=== PATIENT | male | born 1955 | race African-American/Black ===

== ENCOUNTER 2020-07-31 11:15 | Inpatient (IN) | payer OTHER ==
[~2020-07-31] VITALS: Ht 160 cm; Wt 120.0 kg
[2020-07-31 11:15] VITALS: BP 139/59
[~2020-07-31 11:15] MED LIST: METOPROLOL SUCC25 M1 PO; SIMBRINZA 1%-0.28 ML OPHTHALMIC
[2020-07-31 11:43] LABS: ABSOLUTE NEUTROPHILS 6.2 thou/uL (1.4-8.2); BASOPHILS 0.3 % (0.0-2.0); HEMATOCRIT 35.5 % (42.0-52.0); HEMOGLOBIN 11.7 gm/dL (14.0-18.0); MCH 30.1 pg (26.0-34.0); MCHC 33.1 g/dL (28.0-37.0); MONOCYTES 5.8 % (1.0-8.0); PLATELET COUNT 198 thou/uL (150-400); POLYS 85.9 % (36.0-66.0); RDW 14.1 % (10.5-14.5); WBC 7.2 thou/uL (4.0-11.0)
[2020-07-31 11:54] LABS: CALCIUM 10.3 mg/dL (8.5-10.1); CREATININE 2.7 mg/dL (0.7-1.3); POTASSIUM 3.2 mmol/L (3.5-5.1)
[2020-07-31 12:00] LABS: ALBUMIN 3.1 g/dL (3.4-5.0); DIRECT BILIRUBIN 0.2 mg/dL (<0.1-0.2); TOTAL BILIRUBIN 0.6 mg/dL (0.2-1.0); TOTAL PROTEIN 7.2 g/dL (6.4-8.2)
[2020-07-31 12:15] LABS: BE(vivo) 0.6 mmol/L (-2 to +3); HCO3 24.3 mmol/L (22.0-26.0); PCO2 35.7 mmHg (35.0-45.0); pH 7.451 (7.360-7.450); sO2 97.7 % (92.0-98.0)
[2020-07-31 15:01] VITALS: BP 129/52
[2020-07-31 15:10] VITALS: BP 147/54
[2020-07-31 15:46] VITALS: BP 147/70
[2020-07-31 16:10] VITALS: BP 147/70
--- NOTE | 2020-07-31 16:13 | NUR ---
TO UNIT FROM E.D. BY WC. DENIES CP BUT SOA WITH ACTIVITY. ORIENTED TO UNIT, FALL PREVENTION.
[2020-07-31 19:24] VITALS: BP 138/68
[2020-08-01 03:26] VITALS: BP 155/75
--- NOTE | 2020-08-01 05:33 | NUR ---
PT AOX4. PT DENIES PAIN AND SOB WHILE ALTERNATING BETWEEN ROOM AIR AND 12L VIA HIGH FLOW NC WITHOUT DESATURATIONS. PT TOLERATING PO INTAKE OF FLUIDS AND REGULAR DIET WITHOUT ISSUE. PT AMBULATING INDEPENDENTLY IN ROOM AND TO BATHROOM. FREQUENT REPOSITIONING ENCOURAGED, PT NOTED TO SHIFT INDEPENDENTLY WHILE IN BED. PT ENCOUARGED TO NOTIFY STAFF FOR ALL NEEDS, CALL LIGHT WITHIN REACH, BED IN LOWEST POSITION, FREQUENT MONITORING WILL CONTINUE.
[2020-08-01 06:05] LABS: HEMATOCRIT 33.1 % (42.0-52.0); MCH 29.9 pg (26.0-34.0); MCHC 33.2 g/dL (28.0-37.0); MCV 90.1 fL (80.0-100.0); RBC 3.67 mil/uL (4.50-6.00); RDW 14.5 % (10.5-14.5); WBC 6.1 thou/uL (4.0-11.0)
[2020-08-01 06:17] LABS: CALCIUM 9.8 mg/dL (8.5-10.1); CREATININE 2.1 mg/dL (0.7-1.3); POTASSIUM 3.1 mmol/L (3.5-5.1)
[2020-08-01 07:24] VITALS: BP 156/71
[2020-08-01 16:09] VITALS: BP 165/77
--- NOTE | 2020-08-01 18:39 | NUR ---
Assumed pt care at 7am.Pt in and out of bed with sba.Assessment completed.vss but pt has elevated temp. Dr Cherry here,order noted.Later this afternoon,Dr Torres rounded on pt and additional order noted.Pt still on high floow o2.Will continue to monitor.
[2020-08-01 20:19] VITALS: BP 172/76
[2020-08-01] MEDS ORDERED: LISINOPRIL40 MG PO (21:54)
[2020-08-01] MEDS ORDERED: VERAPAMIL HCL120 MG PO (21:54)
[2020-08-01] MEDS ORDERED: TIMOLOL MA0.25 %/52 OPHTHALMIC (21:55)
[2020-08-01] MEDS ORDERED: LATANOPROST 0.2.5 ML OPHTHALMIC (21:58)
[2020-08-02 00:06] VITALS: BP 182/81
[2020-08-02 03:57] VITALS: BP 182/81
--- NOTE | 2020-08-02 05:13 | NUR ---
PT MAKING SLOW PROGRESS TOWARDS GOALS. PT REPORTS HE HAS BEEN REMOVING OXYGEN (15L PER NC) TO GO AND USE THE BATHROOM. FUTHER REPORTED THAT HE DID NOT FEEL SIGNIFICANT OUT OF BREATH DURING THOSE TIMES. NOTED TO BE 85% ON ROOM AIR WHILE AT REST. SEVERAL MINUTES REQUIRED ONCE O2 CANNULA PUT BACK INTO PLACE FOR PT TO REACH 92%. CONTINUE TO MONITOR.
[2020-08-02 06:14] LABS: HEMATOCRIT 33.8 % (42.0-52.0); MCH 29.6 pg (26.0-34.0); MCHC 32.7 g/dL (28.0-37.0); MCV 90.4 fL (80.0-100.0); RBC 3.74 mil/uL (4.50-6.00); RDW 14.4 % (10.5-14.5); WBC 16.3 thou/uL (4.0-11.0)
[2020-08-02 06:50] LABS: ALBUMIN 2.6 g/dL (3.4-5.0); ANION GAP 13 mmol/L (7-16); BUN 46 mg/dL (7-18); CALCIUM 10.3 mg/dL (8.5-10.1); CHLORIDE 108 mmol/L (98-107); CO2 23 mmol/L (21-32); CREATININE 1.9 mg/dL (0.7-1.3); DIRECT BILIRUBIN < 0.1 mg/dL (<0.1-0.2); GLUCOSE 149 mg/dL (74-106); PHOSPHORUS 3.2 mg/dL (2.5-4.9); POTASSIUM 3.3 mmol/L (3.5-5.1); SGOT 66 U/L (15-37); SGPT 56 U/L (30-65); SODIUM 144 mmol/L (136-145); TOTAL BILIRUBIN 0.3 mg/dL (0.2-1.0); TOTAL PROTEIN 6.5 g/dL (6.4-8.2)
--- NOTE | 2020-08-02 11:17 | NUR ---
ASSUMED CARE AT 0700, ASSESSMENT AND VITAL SIGNS COMPLETED PER ICU PROTOCOL. DR. GOMES ROUNDED THIS AM, NO NEW ORDERS RECEIVED. RN WILL CONTINUE TO MONITOR.
--- NOTE | 2020-08-02 11:32 | NUR ---
on-going assessment: CM REVIEWED CHART. PT REMAINS ON IV REMDESIVIR AND IV ANTIBIOTICS. PT REMAINS ON 12 LITERS OXYGEN. PT IS FROM HOME. WILL CONTINUE TO FOLLOW TO ASSIST NEEDED.
[2020-08-02 16:02] VITALS: BP 145/71
[2020-08-02 19:50] VITALS: BP 163/84
[2020-08-03 03:57] VITALS: BP 177/92
--- NOTE | 2020-08-03 05:28 | NUR ---
PT MAKING POOR PROGRESS TOWARDS GOAL. PER RT, PT "WHEEZING" THIS MORNING AND WAS TREATED BY RT WITH MDI. START OF THE EVENING, PT O2 WAS INCREASED TO 15L PER NC (UP FROM 12L) AND HAD A NRB MASK AT 15L PLACED WELL. O2 SAT AFTER PLACING THE NRB REPORTED 92%. PT 92-96% WITH BOTH OXYGEN DELIVERY DEVICES IN PLACE. PT STATED "I FEEL JUST FINE." DENIED ANY SOA WHEN UP TO THE TOILET. RT ATTEMPTED TO SPEAK WITH PT ABOUT THE POSSIBLE NEED FOR BIPAP OR OPTIFLO DEVICE. ALSO POSSIBLY OBTAINING A BLOOD GAS. PT REPORTEDLY UNRECEPTIVE TO THE IDEA OF ANOTHER NEEDLE STICK.
[2020-08-03 06:04] LABS: HEMATOCRIT 32.8 % (42.0-52.0); HEMOGLOBIN 10.9 gm/dL (14.0-18.0); MCH 29.9 pg (26.0-34.0); MCHC 33.3 g/dL (28.0-37.0); PLATELET COUNT 251 thou/uL (150-400); RBC 3.64 mil/uL (4.50-6.00); RDW 14.4 % (10.5-14.5); WBC 12.8 thou/uL (4.0-11.0)
[2020-08-03 06:17] LABS: ALBUMIN 2.5 g/dL (3.4-5.0); ANION GAP 13 mmol/L (7-16); BUN 46 mg/dL (7-18); CALCIUM 9.8 mg/dL (8.5-10.1); CHLORIDE 107 mmol/L (98-107); CO2 24 mmol/L (21-32); CREATININE 1.8 mg/dL (0.7-1.3); DIRECT BILIRUBIN < 0.1 mg/dL (<0.1-0.2); GLUCOSE 136 mg/dL (74-106); PHOSPHORUS 4.3 mg/dL (2.5-4.9); POTASSIUM 3.5 mmol/L (3.5-5.1); SGOT 57 U/L (15-37); SGPT 65 U/L (30-65); SODIUM 144 mmol/L (136-145); TOTAL BILIRUBIN 0.3 mg/dL (0.2-1.0); TOTAL PROTEIN 6.3 g/dL (6.4-8.2)
[2020-08-03 06:19] LABS: FIBRINOGEN 352.7 mg/dL (210-360); INR 1.1; PROTIME 10.9 Seconds (9.3-11.4)
[2020-08-03 07:32] VITALS: BP 168/64
[2020-08-03 10:51] LABS: ABSOLUTE NEUTROPHILS 11.6 thou/uL (1.4-8.2)
[2020-08-03 10:53] LABS: ANISOCYTOSIS 1+; OVALOCYTES FEW
--- NOTE | 2020-08-03 13:34 | NUR ---
ON-GOING ASSESSMENT: CM REVIEWED CHART AND SPOKE WITH ATTENDING. PTS OXYGEN NEEDS HAVE INCREASED AND HE IS NOW ON 15L NRM. PT REMAINS IN ENHANCED ISOLATION DUE TO COVID 19 AND IS STILL RECEIVING REMDESIVIR. NO PLANS FOR DISCHARGE OVER THE WEEKEND. CM WILL CONTINUE TO FOLLOW TO ASSIST NEEDED.
[2020-08-03 15:25] VITALS: BP 165/88
--- NOTE | 2020-08-03 18:50 | NUR ---
CHANGED FROM MS TO MST PATIENT IS HAVING HIGHER OXYGEN NEEDS. NOW OS HIGH MARCIE. WILL CONT WITH PLAN OF CARE.
[2020-08-03 19:43] VITALS: BP 196/91
[2020-08-03 21:55] LABS: URINE BILIRUBIN NEGATIVE (Negative); URINE BLOOD NEGATIVE (Negative); URINE CLARITY CLEAR; URINE COLOR YELLOW; URINE GLUCOSE-RANDOM* NEGATIVE (Negative); URINE KETONES NEGATIVE (Negative); URINE LEUKOCYTES-REFLEX NEGATIVE (Negative); URINE NITRITE-REFLEX NEGATIVE (Negative); URINE PROTEIN (DIPSTICK) NEGATIVE (Negative); URINE UROBILINOGEN 0.2 E.U./dl (0.2-1.0)
--- NOTE | 2020-08-03 22:20 | NUR ---
ASSUMED PT CARE AROUND 1900. PRN HYDRALAZINE GIVEN FOR ELEVATED BP. SPO2 >90% ON OPTIFLOW. PT RESTING COMFORTABLY IN BED IN NO ACUTE DISTRESS. REPORT GIVEN AT 2200 TO RN WHO WILL ASSUME PT CARE FOR THE REMAINDER OF THE SHIFT.
[2020-08-04 03:27] VITALS: BP 194/93
--- NOTE | 2020-08-04 05:02 | NUR ---
ASSESSMENTS CHARTED, MEDS CHARTED GIVEN. TOOK OVER CARE FROM ORIGINAL NIGHT NURSE. PT ANXIOUS WITH ELEVATED BLOOD PRESSURE, HYDRALAZINE GIVEN TWICE DURING SHIFT. SINUS ARRHYTHMIA WITH BBB ON TELEMETRY. LUNGS ARE COARSE ON OPTIFLOW AT 90%. USING URINAL AT BEDSIDE DUE TO INCREASED OXYGEN NEEDS. DENIED PAIN. FALL PRECAUTIONS IN PLACE DURING SHIFT.
[2020-08-04 05:40] LABS: ALBUMIN 2.4 g/dL (3.4-5.0); CALCIUM 10.1 mg/dL (8.5-10.1); CREATININE 1.5 mg/dL (0.7-1.3); DIRECT BILIRUBIN 0.1 mg/dL (<0.1-0.2); PHOSPHORUS 3.6 mg/dL (2.5-4.9); POTASSIUM 3.4 mmol/L (3.5-5.1); TOTAL BILIRUBIN 0.3 mg/dL (0.2-1.0); TOTAL PROTEIN 6.1 g/dL (6.4-8.2)
[2020-08-04 07:37] VITALS: BP 154/80
[2020-08-04 15:33] VITALS: BP 188/97
--- NOTE | 2020-08-04 18:39 | NUR ---
PATIENT NOW SLEEPING. HE IS ALERT ORIENTED X4. EDUCATED ON NEED FOR BIPAP TONIGHT AND HE IS AGREABLE. RESTARTED BP MEDS FROM HOME. WILL CONT WITH PLAN OF CARE.
[2020-08-04 21:27] VITALS: BP 160/68
[2020-08-05 05:04] LABS: HEMATOCRIT 35.2 % (42.0-52.0); HEMOGLOBIN 11.5 gm/dL (14.0-18.0); MCH 29.6 pg (26.0-34.0); MCHC 32.8 g/dL (28.0-37.0); MCV 90.2 fL (80.0-100.0); RBC 3.9 mil/uL (4.50-6.00); RDW 14.7 % (10.5-14.5); WBC 11.4 thou/uL (4.0-11.0)
[2020-08-05 05:15] LABS: ALBUMIN 2.2 g/dL (3.4-5.0); CALCIUM 10.1 mg/dL (8.5-10.1); CREATININE 1.4 mg/dL (0.7-1.3); DIRECT BILIRUBIN 0.2 mg/dL (<0.1-0.2); PHOSPHORUS 3.4 mg/dL (2.5-4.9); POTASSIUM 3.5 mmol/L (3.5-5.1); TOTAL BILIRUBIN 0.4 mg/dL (0.2-1.0); TOTAL PROTEIN 5.9 g/dL (6.4-8.2)
[2020-08-05 07:14] VITALS: BP 190/94
[2020-08-05 15:46] VITALS: BP 160/68
--- NOTE | 2020-08-05 18:23 | NUR ---
ASSUMED PATIENT CARE AT 0700. A/O X4. ON OPTIFLOW 55L WITH 90%. DESAT WITH ACTIVITY. DENIES PAIN. SLOWLY TOWARDS POC GOALS.
[2020-08-05 19:28] VITALS: BP 160/78
[2020-08-06] VITALS (7 sets, daily range): BP systolic 151–196; BP diastolic 78–102
--- NOTE | 2020-08-06 06:22 | NUR ---
Received pt. on Optiflow at beginning of shift 50L/94% FIO2. Slept fair during the night with BIPAP on at 100% FIO2 which RT titrated down to 90% this am. Cont. on enhanced precaution ,afebrile. BP elevated this am ,prn hydralazine given IV. Voided per urinal.
[2020-08-06 07:50] LABS: ABSOLUTE NEUTROPHILS 10.8 thou/uL (1.4-8.2); BASOPHILS 0.5 % (0.0-2.0); HEMATOCRIT 37.6 % (42.0-52.0); HEMOGLOBIN 12.2 gm/dL (14.0-18.0); LYMPHOCYTES 1.9 % (24.0-44.0); MCH 29.2 pg (26.0-34.0); MCHC 32.4 g/dL (28.0-37.0); MONOCYTES 4.2 % (1.0-8.0); PLATELET COUNT 261 thou/uL (150-400); POLYS 93.4 % (36.0-66.0); RBC 4.18 mil/uL (4.50-6.00); RDW 14.8 % (10.5-14.5); WBC 11.6 thou/uL (4.0-11.0)
[2020-08-06 07:59] LABS: INR 1.1; PROTIME 11.7 Seconds (9.3-11.4)
[2020-08-06 08:10] LABS: ALBUMIN 2.3 g/dL (3.4-5.0); CALCIUM 10.3 mg/dL (8.5-10.1); CREATININE 1.3 mg/dL (0.7-1.3); DIRECT BILIRUBIN 0.1 mg/dL (<0.1-0.2); PHOSPHORUS 3.4 mg/dL (2.5-4.9); POTASSIUM 3.6 mmol/L (3.5-5.1); TOTAL BILIRUBIN 0.4 mg/dL (0.2-1.0); TOTAL PROTEIN 6.2 g/dL (6.4-8.2)
[2020-08-06 08:35] LABS: FIBRINOGEN 453.7 mg/dL (210-360)
--- NOTE | 2020-08-06 14:59 | NUR ---
SW reviewed chart and spoke with nursing and attending physician. Pt remains in Enhanced Isolation due to COVID-19. Pt is afebrile and requiring bipap/optiflow support. Pt is on IV abx and IV steroids. Pt is completing course of Remdesivir. Will need therapy evals ordered when pt is able to participate. Pt lives at home alone. Prior to admission, pt was independent with ADLs. No use of DME for ambulation or O2. MORRIS is following to assist as needed with discharge planning.
--- NOTE | 2020-08-06 16:16 | NUR ---
ASSUMED PATIENT CARE AT 0700. A/O X4. TOLERATED ON OPTIFLOW. DESAT WITH ACTIVITY. SLOWLY TOWARDS POC GOALS.
[2020-08-07 03:31] VITALS: BP 184/93
--- NOTE | 2020-08-07 05:51 | NUR ---
Pt. slept well during the night with BIPAP on at 90% FIO2. Shortness of breath with exertion. Cont. on enhanced precaution , afebrile. Voiding per urinal.
[2020-08-07 07:27] VITALS: BP 179/93
[2020-08-07 08:07] LABS: ALBUMIN 2.2 g/dL (3.4-5.0); CALCIUM 10.1 mg/dL (8.5-10.1); CREATININE 1.4 mg/dL (0.7-1.3); DIRECT BILIRUBIN 0.1 mg/dL (<0.1-0.2); PHOSPHORUS 3.7 mg/dL (2.5-4.9); TOTAL BILIRUBIN 0.5 mg/dL (0.2-1.0); TOTAL PROTEIN 5.4 g/dL (6.4-8.2)
--- NOTE | 2020-08-07 11:05 | NUR ---
Assess due to length of stay. Admit with COVID+ pneumonia. Hx obesity, BMI is 43.9. Tolerates meals fair to good 40-100%. BIPAP needs. Low nutrition risk at this time but continue to follow intake trends if breathing difficulty worsens. Low nutrition risk
--- NOTE | 2020-08-07 14:37 | NUR ---
SW reviewed chart and spoke with nursing and attending physician. Pt remains in Enhanced Isolation due to COVID-19. Pt is afebrile and on bipap/optiflow support. Pt is on IV abx and IV steroids. Pt is completing course of Remdesivir. Pt will need therapy evals ordered when able to participate to assist with recommendations for discharge needs. SW is following to assist as needed with discharge planning.
[2020-08-07 15:59] VITALS: BP 160/75
--- NOTE | 2020-08-07 19:38 | NUR ---
PT CONT ON OPTI FLOW. MAKING SLOW PROGRESS TOWARDS DISCH GOALS. ALERT ORIENTED X4. WILL CONT WITH PLAN OF CARE.
[2020-08-07 20:12] VITALS: BP 173/90
[2020-08-08] VITALS (19 sets, daily range): BP systolic 145–202; BP diastolic 69–98
--- NOTE | 2020-08-08 05:44 | NUR ---
PT ON OPTFLOW AND BIPAP AT HS WHEN SLEEPING. VSS, TELE SHOWS HR 50-70'S. PT HAD NO COMPLAINTS OVERNIGHT. FOLLOWING POC WITH IVPB ASORBIC ACID. ISOLATION PRECAUTIONS IN PLACE.
[2020-08-08 10:40] LABS: CREATININE 1.4 mg/dL (0.7-1.3); POTASSIUM 4.2 mmol/L (3.5-5.1); TOTAL PROTEIN 5.8 g/dL (6.4-8.2)
[2020-08-08 10:55] LABS: ALBUMIN 2.3 g/dL (3.4-5.0); CALCIUM 10.5 mg/dL (8.5-10.1); DIRECT BILIRUBIN 0.1 mg/dL (<0.1-0.2); PHOSPHORUS 3.7 mg/dL (2.5-4.9); TOTAL BILIRUBIN 0.4 mg/dL (0.2-1.0)
--- NOTE | 2020-08-08 15:37 | NUR ---
SW reviewed chart and spoke with nursing and attending physician. Pt remains in Enhanced Isolation due to COVID-19. Pt is afebrile and on bipap/optiflow. Pt is on IV abx and IV steroids. Completing course of Remdesivir. Pt will need therapy evals ordered when able to participate. SW is following to assist as needed with discharge planning.
--- NOTE | 2020-08-08 18:42 | NUR ---
PATIENT TRANSFERED TO ICU. HE WAS ON OPTI MARCIE WITH OPTIMAL SATS. HE DENIES PAIN. ALERT ORIENTED X4. WILL CONT WITH PLAN OF CARE.
--- NOTE | 2020-08-08 19:35 | NUR ---
Patient arrived this evening to ICU, as overflow. He is alert and oriented. He was settled in to the bed and hooked up to the monitor. He was given supper.
[2020-08-09] VITALS (24 sets, daily range): BP systolic 141–203; BP diastolic 63–87
--- NOTE | 2020-08-09 02:39 | NUR ---
Report received at 1900, care assumed. Assessments done as documented, pt is hypertensive. Continues on optiflow 50L, 90% O2. Denies pain or discomfort. Pt is alert and oriented x4. Pt has no IV access. Nurse talked to pt about importance of IV but patient stated it's painful so he does not want any IV insertion. pt remains hypertensive with BP AT 186/98. Willy Campbell- CARLYN notified. See new orders. >>>2200 Pt agreed PIV to be inserted. two nurses tried without success due to pt not having viable veins. Pt stated he will only allow IV team to place IV.
[2020-08-09 06:11] LABS: ANION GAP 9 mmol/L (7-16); BUN 46 mg/dL (7-18); CHLORIDE 109 mmol/L (98-107); CO2 26 mmol/L (21-32); CREATININE 1.4 mg/dL (0.7-1.3); DIRECT BILIRUBIN < 0.1 mg/dL (<0.1-0.2); GLUCOSE 102 mg/dL (74-106); SGOT 31 U/L (15-37); SGPT 45 U/L (30-65); SODIUM 144 mmol/L (136-145); TOTAL BILIRUBIN 0.4 mg/dL (0.2-1.0); TOTAL PROTEIN 5.4 g/dL (6.4-8.2)
--- NOTE | 2020-08-09 11:01 | NUR ---
RECEIVED CALL FROM [facility] MGMT SPECIALIST WHO IS AVALAIBLE TO ASSIST WITH DC PLANNING IN [employer] AND WILL FOLLOW PT POST DISCHARGE. HIS NAME IS IRVNI AND P: [phone] [phone]. ICU MGMT SPECIALIST UPDATED.
--- NOTE | 2020-08-09 11:51 | NUR ---
VAT CONSULTED FOR PICC LINE PLACEMENT, IT WAS FELT THAT PT WOULD NOT TOLERATE LYING FLAT FOR IJ. 5FR TL PICC TRIMMED 46 AND INSERTED TO 40CM VIA RIGHT UPPER BRACHIAL VEIN. PT TOLERATED WELL. CXR ORDERED TO CONFIRM TIP LOCATION.
--- NOTE | 2020-08-09 12:09 | NUR ---
CXR DICTATED THAT TIP OVERLIES SVC, PER RADIOLOGY. RELEASED FOR USE.
[2020-08-10] VITALS (66 sets, daily range): BP systolic 113–196; BP diastolic 57–111
[2020-08-10 07:03] LABS: ALBUMIN 1.9 g/dL (3.4-5.0); CALCIUM 9.7 mg/dL (8.5-10.1); CREATININE 1.5 mg/dL (0.7-1.3); DIRECT BILIRUBIN 0.1 mg/dL (<0.1-0.2); PHOSPHORUS 3.5 mg/dL (2.5-4.9); POTASSIUM 4.2 mmol/L (3.5-5.1); TOTAL BILIRUBIN 0.4 mg/dL (0.2-1.0); TOTAL PROTEIN 5.3 g/dL (6.4-8.2)
[2020-08-10] MEDS ORDERED: LIPITOR80 MG PO (15:45)
[2020-08-10] MEDS ORDERED: HYDROCHLOROTHIA25 M2 PO (15:45)
--- NOTE | 2020-08-10 18:23 | NUR ---
1822- Patient progressing towards plan of care as evidenced by maintaining current requirements of oxygen. He is on and off the bipap as noted. He is otherwise intact. He expressed he does not understand why he requires so much oxygen when he feels fine, no pain, no shortness of breath. Education provided. Plan of care is to continue to monitor oxygen demands and titrate accordingly.
[2020-08-11] VITALS (104 sets, daily range): BP systolic 119–160; BP diastolic 42–81
[2020-08-11 05:46] LABS: ABSOLUTE NEUTROPHILS 15.4 thou/uL (1.4-8.2); BASOPHILS 0.3 % (0.0-2.0); HEMATOCRIT 37.4 % (42.0-52.0); HEMOGLOBIN 11.8 gm/dL (14.0-18.0); LYMPHOCYTES 1.5 % (24.0-44.0); MCH 28.9 pg (26.0-34.0); MCHC 31.7 g/dL (28.0-37.0); MCV 91.1 fL (80.0-100.0); MONOCYTES 1.4 % (1.0-8.0); PLATELET COUNT 187 thou/uL (150-400); POLYS 96.8 % (36.0-66.0); RDW 15.2 % (10.5-14.5); WBC 15.9 thou/uL (4.0-11.0)
[2020-08-11 05:54] LABS: FIBRINOGEN 321.9 mg/dL (210-360); INR 1.2; PROTIME 12.6 Seconds (9.3-11.4)
[2020-08-11 06:00] LABS: ALBUMIN 1.9 g/dL (3.4-5.0); CALCIUM 9.8 mg/dL (8.5-10.1); CREATININE 1.3 mg/dL (0.7-1.3); DIRECT BILIRUBIN 0.1 mg/dL (<0.1-0.2); PHOSPHORUS 2.9 mg/dL (2.5-4.9); POTASSIUM 4.3 mmol/L (3.5-5.1); TOTAL BILIRUBIN 0.4 mg/dL (0.2-1.0); TOTAL PROTEIN 5.5 g/dL (6.4-8.2)
--- NOTE | 2020-08-11 16:22 | NUR ---
[id number], Dr. Rothman here, in and out of patient room. He discussed, with nurse at bedside, the importance of letting us know a decision on if patient wants to be intubated. Dr. Rothman and Dr. Phillips updated on patient status. Patient eats, however, his oxygenation is upper 70's-lower 80's. Education provided by physicians and RN. Patient called family and after talking with them, he expressed he would want to be intubated if it came to that. Dr. Rothman asked that he be placed back on bipap, instead of optiflow. He expressed attempt to keep o2 saturations >87%. Education, again, provided to patient. Patient is very cooperative and interacts with staff, in regards to his wishes.
--- NOTE | 2020-08-11 16:24 | NUR ---
Patient not progressing towards plan of care as evidenced by continued need for bipap, with oxygenation levels in the 80% range. He maintains with bipap at 100% o2 saturation >85%. Physician's goal is greater than 87%. Nurse to continue to monitor patient status.
--- NOTE | 2020-08-11 20:11 | NUR ---
1800- Patient unable to eat his supper secondary to desaturating oh the heated highflow, max settings. His o2 saturation was in the upper 70%. Education provided in regards to his oxygenation levels and the need for them to be higher, instead of eating.
[2020-08-12] VITALS (88 sets, daily range): BP systolic 137–173; BP diastolic 50–98
[2020-08-12 05:54] LABS: HCO3 28.2 mmol/L (22.0-26.0); PCO2 40.6 mmHg (35.0-45.0); PO2 60.7 mmHg (80.0-100.0); pH 7.459 (7.360-7.450); sO2 92.5 % (92.0-98.0)
--- NOTE | 2020-08-12 06:03 | NUR ---
Report received at 1900, care assumed. Pt continues on Bipap settings with FIO2 at 100%. O2 sats running between 85-87%. Denies SOA, states he's doing alright. At 2030, pt started desating to l0w 80s, respiratory therapist present, pt encouraged to take slow deep breathes. Bipap mask changed. O2 sats improving to 86-89% on 100% FIO2. 2200 Pt again dessating to low 70s. Respiratory therapist present, BIPAP settings changed to EVAPS as documented. FIO2 at 100%. 02 sats improved to 86-89%. 0400 Pt laying in bed, no respiratory distress noted. Bipap settings as documented. 02 sats at 91% with FIO2 100%. Denies SOA. Will continue to monitor.
[2020-08-12 06:19] LABS: ALBUMIN 2.6 g/dL (3.4-5.0); CALCIUM 9.4 mg/dL (8.5-10.1); CREATININE 1.3 mg/dL (0.7-1.3); DIRECT BILIRUBIN 0.1 mg/dL (<0.1-0.2); PHOSPHORUS 3.7 mg/dL (2.5-4.9); POTASSIUM 3.3 mmol/L (3.5-5.1); TOTAL BILIRUBIN 0.6 mg/dL (0.2-1.0); TOTAL PROTEIN 5.4 g/dL (6.4-8.2)
[2020-08-12 10:37] LABS: ABSOLUTE NEUTROPHILS 15.9 thou/uL (1.4-8.2); BASOPHILS 0.3 % (0.0-2.0); EOSINOPHILS 0.1 % (0.0-3.0); HEMATOCRIT 32.9 % (42.0-52.0); HEMOGLOBIN 10.4 gm/dL (14.0-18.0); LYMPHOCYTES 1.9 % (24.0-44.0); MCH 28.8 pg (26.0-34.0); MCHC 31.6 g/dL (28.0-37.0); MONOCYTES 3.1 % (1.0-8.0); PLATELET COUNT 115 thou/uL (150-400); POLYS 94.6 % (36.0-66.0); RBC 3.61 mil/uL (4.50-6.00); WBC 16.8 thou/uL (4.0-11.0)
--- NOTE | 2020-08-12 13:13 | NUR ---
PATIENT HAS BEEN SWITCHING BACK AND FORTH BETWEEN FULL FACE MASK AND HOCKEY MASK. SATURATION FOR MY HAS STAYED IN THE LOW 90'S TODAY. STILL LABORED BREATHING AND STILL WANTING TO HOLD OFF LONG HE CAN WITH INTUBATION. SR VENTURA IS AWARE OF HIS DESIRE TO WAIT.
--- NOTE | 2020-08-12 16:42 | NUR ---
Patient maintaining on bipap at this time. His oxygenation levels have been 88-94% today. He denies shortness of breath. He does express he has a headache and would like tylenol to help. When he is off bipap for a few seconds, he desaturates into lower 70% range. Nurse talked with patients sonPiotr today on patients cell phone speaker. He was updated. Nurse also updated his Tia, his other spokes person. Nurse to continue to monitor patient status, his status is gaurded and critical.
[2020-08-13] VITALS (199 sets, daily range): BP systolic 72–209; BP diastolic 35–105
[2020-08-13 03:43] LABS: BE(vivo) 3.8 mmol/L (-2 to +3); HCO3 27.6 mmol/L (22.0-26.0); PCO2 38.3 mmHg (35.0-45.0); pH 7.475 (7.360-7.450); sO2 92.3 % (92.0-98.0)
[2020-08-13 05:09] LABS: ABSOLUTE NEUTROPHILS 16.6 thou/uL (1.4-8.2); BASOPHILS 0.3 % (0.0-2.0); HEMATOCRIT 31.7 % (42.0-52.0); HEMOGLOBIN 10.4 gm/dL (14.0-18.0); LYMPHOCYTES 1.6 % (24.0-44.0); MCH 29.7 pg (26.0-34.0); MCHC 32.9 g/dL (28.0-37.0); MCV 90.2 fL (80.0-100.0); MONOCYTES 2.9 % (1.0-8.0); PLATELET COUNT 107 thou/uL (150-400); POLYS 95.2 % (36.0-66.0); RBC 3.52 mil/uL (4.50-6.00); RDW 14.7 % (10.5-14.5); WBC 17.4 thou/uL (4.0-11.0)
--- NOTE | 2020-08-13 05:16 | NUR ---
PATIENT A/OX4, DENIES PAIN. L/S COARSE/DIMINISHED. CONTINUES ON BIPAP AT 100% FiO2, NOT TOLARATING TURNS AND EXERTION, DESATING WHILE USING URINAL,SATO2 87-93%, RR 30s MOST OF THE NIGHT. CARDENE TITRATED TO 2.5ML/HR.NOTED FREQUENT PVCs, BIGEMINY, TRIGEMINY, MAG LEVEL ADDED TO AM LABS
[2020-08-13 05:21] LABS: ALBUMIN 2.7 g/dL (3.4-5.0); CALCIUM 9.8 mg/dL (8.5-10.1); CREATININE 1.2 mg/dL (0.7-1.3); MAGNESIUM 2.3 mg/dL (1.8-2.4); PHOSPHORUS 3.3 mg/dL (2.5-4.9); POTASSIUM 3.7 mmol/L (3.5-5.1); TOTAL BILIRUBIN 0.6 mg/dL (0.2-1.0); TOTAL PROTEIN 5.2 g/dL (6.4-8.2)
--- NOTE | 2020-08-13 11:44 | NUR ---
Dr. Blanchard rounded and expressed he would like to intubate patient secondary to his oxygenation on bipap. Nurse updated patients spokes person Izabela and Piotr Agosto on the phone to inform them of patient status and intubation need. Questions were answered the best of my ability.
--- NOTE | 2020-08-13 13:00 | NUR ---
1235- PATIENT INTUBATED BY . OG TUBE PLACED, XRAY OBTAINED
--- NOTE | 2020-08-13 14:15 | NUR ---
1412- BARNES PLACED WITHOUT COMPLICATION. PATIENT BEING BAGGED BY RT, WAITING FOR TO COME AND PERFORM BRONCHOSCOPY. Consent obtained from patients son and he was updated by another RN.
--- NOTE | 2020-08-13 14:50 | NUR ---
6310- Bronchosopy performed by Dr. Blanchard. Patient oxygen demands increasing, oxygenation unstable, remaining 70%-80's%. Dr. Blanchard to call family and discuss plan of care.
[2020-08-13 15:06] LABS: BE(vivo) 1.5 mmol/L (-2 to +3); HCO3 28.4 mmol/L (22.0-26.0); PCO2 56.4 mmHg (35.0-45.0); PO2 50.6 mmHg (80.0-100.0); sO2 82.1 % (92.0-98.0)
--- NOTE | 2020-08-13 15:50 | NUR ---
Case discussed with the care team. Pt intubated today with worsening respiratory status. Nursing has updated his son Piotr and friend Izabela. Pt continues on a cardene gtt, iv steriods,iv atb and addtional doses of remdesivir. DC needs are uncertain at this time. Will continue to follow for support.
--- NOTE | 2020-08-13 17:00 | NUR ---
PATIENT BELONGINGS THAT FAMILY IS TAKING HOME WALLET WITH SECURITY BANK CREDIT CARD SOCIAL SECURITY CARD VISA DEBIT CARD CAPITAL ONE VISA CARD MAZUMA CREDIT CARD ROLLY DEBIT VISA SECIRUTY [employer] MASTER CARD $50.00 BILL X2 $100.00 BILL X2 [place] SET WITH 3 KEYS RED SOCKS PANTS UNDERWEAR WHITE SHIRT GOLD COLORED BUCKLE WITH CLEAR STONES READING JAG LARGE GOLD COLORED RING WITH MULTIPLE CLEAR STONES GOLD COLORED CHAIN BRACELET WITH CLEAR STONES READING POOH GOLD COLORED CHAIN NECKLACE WITH GOLD COLORED PENDANT AND CLEAR COLORED STONES SECOND SET OF KEYS WITH MULTIPLE KEYS DRIVERS LICENSE INSURANCE CARD
--- NOTE | 2020-08-13 21:36 | NUR ---
Patients family took belongings as documented, except they left his cell phone, automation qa analyst, and eye glasses. They expressed they wanted to leave them for him. Education was provided on his current status and plan of care. Dr. Blanchard came and talked with patients son. It was decided to change code status, but short of that to do everything we can to get him better, per sons report.
[2020-08-14] VITALS (113 sets, daily range): BP systolic 76–197; BP diastolic 32–89
--- NOTE | 2020-08-14 01:35 | NUR ---
ASSUMED PATIENT CARE AT 1900. PATIENT SEDATED AND INTUBATED, PUPILS REACTIVE. VSS ON LOW DOSE LEVOPHED, AFEBRILE. UOP 20ML FIRST TWO HOURS, NEW ORDERS LASIX 40MG IVP GIVEN.POSITIVE SEPSIS SCREENING, NEW ORDERS FOR ABX NOTED/ADMINISTERED. CALLED AT 2315 FOR WORSENING RESPIRATORY ISSUES. PT ON APRV 30, FiO2 100%, SATO2 76%. PATIENT PRONE AT 2330, VENT SETTINGS CHANGED TO PC/AC 40, FiO2 100%, RATE 25, PEEP 14 PER ORDERS, SATO2 IMPROVED 87-89%
[2020-08-14 06:32] LABS: HEMATOCRIT 31.2 % (42.0-52.0); HEMOGLOBIN 9.9 gm/dL (14.0-18.0); MCH 29.2 pg (26.0-34.0); MCHC 31.8 g/dL (28.0-37.0); MCV 92.1 fL (80.0-100.0); PLATELET COUNT 94 thou/uL (150-400); RBC 3.39 mil/uL (4.50-6.00); RDW 15.3 % (10.5-14.5); WBC 23.2 thou/uL (4.0-11.0)
[2020-08-14 06:42] LABS: ALBUMIN 2.8 g/dL (3.4-5.0); CALCIUM 9.8 mg/dL (8.5-10.1); TOTAL BILIRUBIN 0.7 mg/dL (0.2-1.0); TOTAL PROTEIN 5.6 g/dL (6.4-8.2)
[2020-08-14 06:44] LABS: CREATININE 2.3 mg/dL (0.7-1.3)
[2020-08-14 06:53] LABS: BE(vivo) -0.9 mmol/L (-2 to +3); HCO3 26.1 mmol/L (22.0-26.0); PO2 49.7 mmHg (80.0-100.0); pH 7.294 (7.360-7.450)
[2020-08-14 06:54] LABS: sO2 80.3 % (92.0-98.0)
--- NOTE | 2020-08-14 08:02 | NUR ---
CRITICAL ABGs CALLED TO @3806. NO NEW ORDERS AT THIS TIME.
[2020-08-14 09:44] LABS: ABSOLUTE NEUTROPHILS 22.5 thou/uL (1.4-8.2)
[2020-08-14 09:45] LABS: PLATELET ESTIMATE SLIGHTLY DECREASED
[2020-08-14 09:46] LABS: ANISOCYTOSIS SLIGHT; BURR CELLS OCCASIONAL; OVALOCYTES OCCASIONAL; POIKILOCYTOSIS SLIGHT
--- NOTE | 2020-08-14 09:53 | NUR ---
ASSUMED CARE OF THE PATIENT AT 0700. DR. GOMES AT BEDSIDE AT 0900. NO NEW ORDERS GIVEN. HE IS VERY CONCERNED ABOUT THIS PATIENT DUE TO POOR O2 SATS. HE SAID HE WAS GOING TO GIVE THE PT'S SON A CALL.
--- NOTE | 2020-08-14 12:26 | NUR ---
Nutrition: If within plan of care, REC Vital HP to run at 45 mL/hr (based on estimated run time of approx. 9 hrs daily due to proning). OR bolus 2 cartons Vital HP daily. Currently pt on very high doses of propofol. If not proning, RD will adjust recommendations.
--- NOTE | 2020-08-14 12:51 | 2DMMODE ---
[address] [address] 2 D/M-MODE ECHOCARDIOGRAM Name: ZAINAB FLOWERS Room #: 240-P ADM IN M.R.#: [id number] Admission: 07/31/20 Attend Phys: Bonilla Cherry MD Discharge: Date of : 53 Report #: [id number] THIS REPORT FOR: cc: FAM - Family physician unknown FAM - Family physician unknown Yoni Ingram MD [facility] ~ APPROVED REPORT Study performed: 08/14/2020 11:39:11 EXAM: Comprehensive 2D, Doppler, and color-flow Echocardiogram Patient Location: ICU Room #: 240 Status: routine BSA: 2.10 HR: 102 bpm BP: 104/62 mmHg Rhythm: Tachycardia Other Information Study Quality: Adequate Indications Dyspnea Covid 19 Echo Enhancing Agent Indication: Rule out Shunt Agent(s) / Amount(s) Used: Agitated Saline 7 cc Aortic Valve AoV Peak Dirk.: 2.13 m/s AO Peak Gr.: 18.20 mmHg Pulmonary Valve PV Peak Dirk.: 1.13 m/s PV Peak Gr.: 5.09 mmHg Left Ventricle The left ventricle is normal size. Mild to moderate concentric left ventricular hypertrophy. Left ventricular systolic function is hyperdynamic. LVEF is >70%. Grade I - abnormal relaxation pattern. Right Ventricle [address] [address] 2 D/M-MODE ECHOCARDIOGRAM Name: ZAINAB FLOWERS Room #: 240-P ADM IN M.R.#: [id number] Admission: 07/31/20 Attend Phys: Bonilla Cherry MD Discharge: Date of : 53 Report #: [id number] The right ventricle is normal size. The right ventricular systolic function is normal. Atria The left atrium size is normal. Interatrial septum is intact without evidence of ASD or PFO. The right atrium size is normal. Aortic Valve The aortic valve is normal in structure. No aortic regurgitation is present. There is no aortic valvular stenosis. Mitral Valve The mitral valve is normal in structure. There is no mitral valve regurgitation noted. No evidence of mitral valve stenosis. Tricuspid Valve The tricuspid valve is normal in structure. There is no tricuspid valve regurgitation noted. Pulmonic Valve The pulmonary valve is normal in structure. There is no pulmonic valvular regurgitation. Great Vessels The aortic root is normal in size. IVC is dilated and collapses <50% with inspiration. Pericardium There is no pericardial effusion. <Conclusion> Normal left ventricle size Mild-moderate concentric hypertrophy EF 70%, hyperdynamic systolic function Grade 1 diastolic dysfunction Normal right heart size/function Normal atrial size Normal aortic/mitral valve structure and function No evidence of tricuspid valve insufficiency No pericardial effusion <ELECTRONICALLY SIGNED> By: Yoni Ingram MD, [facility] 08/14/20 1251 D: 12/1250 49 Yoni Ingram MD, FACC /INF
[2020-08-15] VITALS (138 sets, daily range): BP systolic 65–170; BP diastolic 27–82
--- NOTE | 2020-08-15 04:48 | NUR ---
Report received at 1900, care assumed. Assessments done as documented. Sedation vacation not done. Pt's called at 2150. Dr Torres rounding on pt at 1999, no new orders received. Uppdates given with regards to pt's oxygenation, VS and urine output. informed pt still reains critical at this time. Restraints taken off at 2300. Pt's O2 sats trending down slowly. Will continue to monitor.
[2020-08-15 06:21] LABS: HEMATOCRIT 29.8 % (42.0-52.0); HEMOGLOBIN 10.2 gm/dL (14.0-18.0); MCH 32.1 pg (26.0-34.0); MCHC 34.2 g/dL (28.0-37.0); MCV 94.1 fL (80.0-100.0); RBC 3.16 mil/uL (4.50-6.00); RDW 16.1 % (10.5-14.5); WBC 20.4 thou/uL (4.0-11.0)
[2020-08-15 06:36] LABS: CREATININE 2.6 mg/dL (0.7-1.3); POTASSIUM 4.1 mmol/L (3.5-5.1)
[2020-08-15 06:38] LABS: CALCIUM 7.4 mg/dL (8.5-10.1)
--- NOTE | 2020-08-15 16:42 | NUR ---
SPOKE W/ TIA WHO IS A CLOSE FAMILY FRIEND. UPDATE PROVIDED. REASSURANCES AND EMOTIONAL SUPPORT OFFERED.
--- NOTE | 2020-08-15 17:56 | NUR ---
DIPRIVAN OFF, SEDATION DECREASED. PT DOES NOT OPEN EYES OR FOLLOW COMMANDS. LEVOPHED SLOWLY TITRATING DOWN. O2 REQUIREMENTS STILL 100%, BUT SPO2 SEEN HIGH 94% TODAY. LASIX AND ALBUMIN GIVEN W/ A MODEST INCREASE IN URINE OUTPUT THIS AFTERNOON. PT PROGRESSING VERY SLOWLY TOWARD GOALS TODAY.
[2020-08-16] VITALS (106 sets, daily range): BP systolic 89–223; BP diastolic 26–92
[2020-08-16 05:14] LABS: HEMATOCRIT 27.5 % (42.0-52.0); HEMOGLOBIN 8.9 gm/dL (14.0-18.0); MCH 29.4 pg (26.0-34.0); MCHC 32.5 g/dL (28.0-37.0); MCV 90.4 fL (80.0-100.0); RBC 3.04 mil/uL (4.50-6.00); RDW 15.5 % (10.5-14.5); WBC 15.4 thou/uL (4.0-11.0)
[2020-08-16 05:19] LABS: CALCIUM 8.8 mg/dL (8.5-10.1); POTASSIUM 4.6 mmol/L (3.5-5.1)
--- NOTE | 2020-08-16 15:30 | NUR ---
SEVERAL CALLS FROM FAMILY MEMBERS AND FRIEND(S) INQUIRING REGARDING PT STATUS. RN RETURNED CALL TO ZAINAB FLOWERS JR TO UPDATE ON SEVERAL CALLS AND REQUESTING HIM TO UPDATE INFORMATION TO FAMILY/FRIENDS. CONTINUED TO UPDATE ON PT'S DETERIORATING RESP STATUS INCLUDING VENT AT 100% FIO2- DELIVERING ALL THE 02 THAT IS POSSIBLE TO DELIVER HOWEVER HIS 02 SATURATION CONTINUES TO DETERIORATE FAR BELOW AN ACCEPTABLE LEVEL. DISCUSSED LOW URINE OUTPUT.
--- NOTE | 2020-08-16 19:30 | NUR ---
>>>>>LEVOPHED TITRATED OFF AT 0900. >>>>> PRESENT IN AM, UPDATED ON PT'S LOW SAO2 FROM 77-91%. DESAT'S WITH MINIMAL ACTIVITY. CONTINUING USE OF FENTANYL/VERSED FOR VENT SEDATION. LOW URINE OUTPUT. DR. TEAGUE PRESENT, UPDATED ON PT STATUS. >>>>> IN AFTERNOON AT 1535, UPDATED . PT RESP STATUS CONTINUING TO DETERIORATE. DESPITE BEING [id number]%, PC-25, PEEP-14, SAO2 DOWN INTO UPPER 60'S. ROSS, RT PRESENT. PER , VENT CHANGES TO PC OR APRV ARE OPTIONS FOR THE RT TO DETERMINE AND DECREASE RR-20. DESPITE CHANGE TO PC, NO IMPROVEMENT. NO ADDITIONAL RESP ORDERS TO PROVIDE AT THIS TIME. ALL THE POSSIBLE RESP CARE IS PROVIDED. >>>>> AWARE OF EXTREMELY LOW URINE OUTPUT. STARTED NS BOLUS HOWEVER NOT TOLERATED, SAO2 CONTINUING TO DETERIORATE. ALBUMIN INFUSING, THEN ONCE COMPLETED LASIX 100MG IV ADMINISTERED, SEE MARS FOR DETAILS. >>>>> AT 1630, CALL PLACED TO DR. KAPLAN TO UPDATE ON PT'S DETERIORATING RESP STATUS AND LOW URINE OUTPUT. >>>>> AT 1855, PAGE TO DR. KAPLAN, NOT RETURNED. REPORT GIVEN TO ONCOMING RN.
--- NOTE | 2020-08-16 23:45 | NUR ---
REPORT RECEIVED. PATIENT REMAINS ON THE VENT. FIO2 OF 100% ON THE VENT. SATS 50-55%. AWARE. HAND PAINTER NOTIFIED. HAND PAINTER CALLS THE FAMILY FOR POSSIBLE HADOOP INFRASTRUCTURE ARCHITECT. FAMILY ON THEIR WAY TO THE HOSPITAL. AT APPROX 2109 PATIENT SATS DROPS TO 10%. RT NOTIFIED. PATIENT BINU'S DOWN TO 20S. PT IS DNR. HAND PAINTER NOTIFIED ON CHANGE IN PATIENT CONDITION. PATIENT EXPIRES AT 2114. FAMILY NOTIFIED. TELEGRAPH SERVICE RATER NOTIFIED. NOTIFIED. [facility] CALLED AT APPROX 2150. PATIENT NOT A CANDIDATE FOR ORGAN OR TISSUE. FAMILY AT THE UNIT. ALL PERSONAL BELONGINGS TAKEN WITH THE SON (ZAINAB FLOWERS JR). POSTMOTERM CARE DONE. SECURITY CALLED AND PATIENT TAKEN TO THE [facility] [place] AT 2340. ALL QUESTIONS ANSWERED.
== END 2020-08-16 23:30 | DRG 871 ==
LOC: ER 11:15 → 3W 12:51 → EROBS 12:51 → 3W 15:29 → ICU 08-08 16:09
PROVIDERS: Internal Medicine; Internal Medicine Pulmonary Disease; Nurse Practitioner; Pediatrics; Specialist; ADMIT Hospitalist; ATTEND Hospitalist
PROC: 5A0955A Assistance with Respiratory Ventilation, Greater than 96 Consecutive Hours, High Flow/Velocity Cannula (ICD-10-PCS; principal; 2020-07-31)
PROC: XW033E5 Introduction of Remdesivir Anti-infective into Peripheral Vein, Percutaneous Approach, New Technology Group 5 (ICD-10-PCS; 2020-08-02)
PROC: 5A09357 Assistance with Respiratory Ventilation, Less than 24 Consecutive Hours, Continuous Positive Airway Pressure (ICD-10-PCS; 2020-08-05)
PROC: 5A09357 Assistance with Respiratory Ventilation, Less than 24 Consecutive Hours, Continuous Positive Airway Pressure (ICD-10-PCS; 2020-08-06)
PROC: 5A09357 Assistance with Respiratory Ventilation, Less than 24 Consecutive Hours, Continuous Positive Airway Pressure (ICD-10-PCS; 2020-08-07)
PROC: 5A09357 Assistance with Respiratory Ventilation, Less than 24 Consecutive Hours, Continuous Positive Airway Pressure (ICD-10-PCS; 2020-08-08)
PROC: 5A09357 Assistance with Respiratory Ventilation, Less than 24 Consecutive Hours, Continuous Positive Airway Pressure (ICD-10-PCS; 2020-08-09)
PROC: 02HV33Z Insertion of Infusion Device into Superior Vena Cava, Percutaneous Approach (ICD-10-PCS; 2020-08-09)
PROC: 5A09457 Assistance with Respiratory Ventilation, 24-96 Consecutive Hours, Continuous Positive Airway Pressure (ICD-10-PCS; 2020-08-10)
PROC: 5A1945Z Respiratory Ventilation, 24-96 Consecutive Hours (ICD-10-PCS; 2020-08-13)
PROC: 0BJ08ZZ Inspection of Tracheobronchial Tree, Via Natural or Artificial Opening Endoscopic (ICD-10-PCS; 2020-08-13)
PROC: 0BH17EZ Insertion of Endotracheal Airway into Trachea, Via Natural or Artificial Opening (ICD-10-PCS; 2020-08-13)
DX: A41.9 Sepsis, unspecified organism (principal); U07.1 COVID-19; J12.89 Other viral pneumonia; J80 Acute respiratory distress syndrome; R65.21 Severe sepsis with septic shock; G92 Toxic encephalopathy; N17.9 Acute kidney failure, unspecified; Z68.42 Body mass index [BMI] 45.0-49.9, adult; E87.2 Acidosis; Z66 Do not resuscitate; D69.6 Thrombocytopenia, unspecified; E87.6 Hypokalemia; I12.9 Hypertensive chronic kidney disease with stage 1 through stage 4 chronic kidney disease, or unspecified chronic kidney disease; N18.9 Chronic kidney disease, unspecified; E66.01 Morbid (severe) obesity due to excess calories; D64.9 Anemia, unspecified; K59.00 Constipation, unspecified
CPT/HCPCS: 10078; 10080; 10203; 10879; 27000